=== PATIENT | male | born 1980 | race Two or more races ===

== ENCOUNTER 2020-07-07 01:18 | Emergency (ER) | payer BC ==
[~2020-07-07] VITALS: Ht 170.2 cm; Wt 77.1 kg
--- NOTE | 2020-07-07 01:33 | NUR ---
PT AAOX4. BIBSELF C/O SOB X2 DAYS. PT TESTED POSITIVE FOR COVID X1 WEEK AGO. PT SEEN BY PMD PROVIDED WITH W[place] FOR ANTIBIOTICS AND ALBUTEROL. PLACED ON MONITOR AND PULSE OX. SAT 98%. AT BEDSIDE FOR EVAL. AWAITING ORDERS.
--- NOTE | 2020-07-07 01:33 | NUR ---
X RAY AT BED SIDE
--- NOTE | 2020-07-07 01:34 | NUR ---
RADIOLOGY AT BEDSIDE.
--- NOTE | 2020-07-07 02:29 | NUR ---
Patient discharged to home in stable condition. Written and verbal after care instructions given. Patient verbalizes understanding of instruction. Pt did not want to wait for xray results. Stated he will leaf size picker a copy tomorrow. Vitals stable. Ambulatory with steady gait.
[2020-07-07 02:32] VITALS: BP 139/82
== END 2020-07-07 02:32 | disposition home or self-care (01) ==
LOC: ER 01:20
DX: U07.1 COVID-19 (principal)
CPT/HCPCS: 71045-TC